=== PATIENT | male | born 2000 | race Caucasian/White ===

== ENCOUNTER 2019-06-18 19:45 | Inpatient (IN) ==
[2019-06-18 20:25] LABS: Basophils # 0.1 K/mcL (0.0-0.2); Basophils % 0.6 %; Eosinophils # 0.2 K/mcL (0.0-0.6); Eosinophils % 1.8 %; Hematocrit 45.8 % (37.5-50.1); Immature Granulocytes % 0.2 % (0-4); Lymphocytes # 2.3 K/mcL (0.6-4.6); Mean Corpuscular HGB Conc 34.9 g/dL (31.6-35.5); Mean Corpuscular Hemoglobin 30.5 pg (28.0-33.3); Mean Corpuscular Volume 87.4 fL (83.0-100.0); Monocytes # 0.7 K/mcL (0.0-1.3); Monocytes % 6.9 %; Neutrophils # 6.3 K/mcL (1.6-8.9); Platelet Count 285 K/mcL (140-400); Red Blood Count 5.24 M/mcL (4.19-5.50); Red Cell Distribution Width 13.2 % (11.5-14.5); Segmented Neutrophils % 66.5 %; White Blood Count 9.5 K/mcL (4.3-11.1)
[2019-06-18 20:27] LABS: Bilirubin,Urine Negative (Negative); Blood,Urine Negative (Negative); Clarity,Urine Cloudy (Clear); Color,Urine Yellow (Yellow); Glucose,Urine (UA) Normal (Normal); Ketones,Urine Negative (Negative); Leukocyte Esterase,Urine Negative (Negative); Nitrite,Urine Negative (Negative); PH,Urine 6.5 pH Units (5.0-8.0); Protein,Urine Negative (Neg-Trace); Specific Gravity,Urine 1.023 (1.010-1.025); Urobilinogen,Urine Normal (Normal)
[2019-06-18 20:29] LABS: Bacteria,Urine None Seen per hpf (None-Few); Hyaline Casts,Urine None Seen per lpf (None-Few); RBC,Urine 0-3 per hpf (0-3); Squamous Epithelial Cell,Urine Moderate per lpf (None-Few); WBC,Urine 0-3 per hpf (0-3)
[2019-06-18 20:35] LABS: Amphetamine Screen,Urine Positive ng/mL (Cutoff=1000); Barbiturate Screen,Urine Negative ng/mL (Cutoff=200); Benzodiazepines Screen,Urine Negative ng/mL (Cutoff=200); Cannabinoid Screen,Urine Positive ng/mL (Cutoff = 50); Cocaine Screen,Urine Negative ng/mL (Cutoff= 300); Opiate Screen,Urine Negative ng/mL (Cutoff=300); Phencyclidine Screen,Urine Negative ng/mL (Cutoff=25)
[2019-06-18 20:49] LABS: Acetaminophen < 10 mcg/mL (10-20); BUN/Creatinine Ratio 12 (6-26); Blood Urea Nitrogen 11 mg/dL (6-20); Calcium 9.4 mg/dL (8.6-10.3); Carbon Dioxide 26 mEq/L (23-29); Chloride 104 mEq/L (98-107); Ethanol < 10 mg/dL (Less than 10); Glucose 110 mg/dL (70-105); Osmolality,Calculated 288 (280-300); Potassium 3.4 mEq/L (3.5-5.1); Salicylate < 2.5 mg/dL (15.0-30.0); Sodium 139 mEq/L (136-145); eGFR For African Americans > 60 (> 60); eGFR For Non-African Americans > 60 (> 60)
[2019-06-18] MEDS ORDERED: traZODone 50 MG TABLET PO PRN (23:49)
[2019-06-18] MEDS ORDERED: *HR* LORazepam 1 MG TABLET PO PRN (23:49)
[2019-06-18] MEDS ORDERED: *HR* LORazepam 2 MG/ML VIAL IM PRN (23:49)
[2019-06-18] MEDS ORDERED: Nicotine 2 MG GUM BC PRN (23:49)
[2019-06-18] MEDS ORDERED: Acetaminophen 325 MG TABLET PO PRN (23:49)
[2019-06-18] MEDS ORDERED: Haloperidol Lactate 5 MG/ML VIAL IM PRN (23:49)
[2019-06-18] MEDS ORDERED: hydrOXYzine pamoate 25 MG CAPSULE PO PRN (23:49)
[2019-06-18] MEDS ORDERED: MOM Conc 10 ML UD.LIQ PO PRN (23:49)
[2019-06-18] MEDS ORDERED: Mag Hydrox/Al Hydrox/Simeth 30 ML UDC PO PRN (23:49)
[2019-06-24 09:23] VITALS: BP 115/78
== END 2019-06-24 10:55 | disposition home or self-care (01) | DRG 751 ==
LOC: EMEROOARM 19:45 → SUATTDRO 23:25 → 1ANU 23:25
PROVIDERS: ADMIT Psychiatry & Neurology Psychiatry; ATTEND Psychiatry & Neurology Psychiatry

== ENCOUNTER 2020-03-28 16:16 | Observation (INO) ==
[2020-03-28 17:04] LABS: Basophils # 0.1 K/mcL (0.0-0.2); Basophils % 0.4 %; Eosinophils # 0.1 K/mcL (0.0-0.6); Eosinophils % 0.8 %; Hematocrit 47.7 % (37.5-50.1); Hemoglobin 15.7 g/dL (12.9-16.9); Immature Granulocytes % 0.4 % (0-4); Lymphocytes # 1.6 K/mcL (0.6-4.6); Lymphocytes % 9.7 %; Mean Corpuscular HGB Conc 32.9 g/dL (31.6-35.5); Mean Corpuscular Hemoglobin 29.8 pg (28.0-33.3); Mean Corpuscular Volume 90.7 fL (83.0-100.0); Mean Platelet Volume 9.5 fL (9.4-12.4); Monocytes # 1.8 K/mcL (0.0-1.3); Monocytes % 10.8 %; Neutrophils # 12.8 K/mcL (1.6-8.9); Platelet Count 282 K/mcL (140-400); Red Blood Count 5.26 M/mcL (4.19-5.50); Red Cell Distribution Width 13.2 % (11.5-14.5); Segmented Neutrophils % 77.9 %; White Blood Count 16.5 K/mcL (4.3-11.1)
[2020-03-28 17:08] LABS: INR 1.1; Prothrombin Time 12.9 Seconds (9.4-12.1)
[2020-03-28 17:08] LABS: Bilirubin,Urine Negative (Negative); Blood,Urine Negative (Negative); Clarity,Urine Clear (Clear); Color,Urine Yellow (Yellow); Glucose,Urine (UA) Normal (Normal); Ketones,Urine Negative (Negative); Leukocyte Esterase,Urine Negative (Negative); Nitrite,Urine Negative (Negative); Protein,Urine Trace mg/dL (Neg-Trace); Specific Gravity,Urine > 1.030 (1.010-1.025)
[2020-03-28 17:11] LABS: Activated Partial Thrombo Time 29.6 Seconds (26.0-36.0)
[2020-03-28] MEDS ORDERED: Isovue-370 500 ML BOTTLE IVP ONE (17:15)
[2020-03-28] MEDS ORDERED: 0.9 % Sodium Chloride 1,000 ML IVC ONE (17:16)
[2020-03-28 17:22] LABS: Alanine Aminotransferase 231 Units/L (7-52); Albumin 4.9 g/dL (3.5-5.7); Albumin/Globulin Ratio 1.4 (1.1-2.2); Alkaline Phosphatase 99 Units/L (34-104); Aspartate Amino Transferase 114 Units/L (13-39); BUN/Creatinine Ratio 12 (6-26); Bilirubin,Direct 0.2 mg/dL (0.0-0.2); Bilirubin,Indirect 0.8 mg/dL (0.0-1.0); Blood Urea Nitrogen 11 mg/dL (6-20); Calcium 9.9 mg/dL (8.6-10.3); Carbon Dioxide 30 mEq/L (23-29); Chloride 100 mEq/L (98-107); Globulin 3.4 g/dL (2.4-3.5); Glucose 80 mg/dL (70-105); Lipase 7 Units/L (11-82); Osmolality,Calculated 280 (280-300); Potassium 3.3 mEq/L (3.5-5.1); Sodium 136 mEq/L (136-145); Total Protein 8.3 g/dL (6.4-8.9); eGFR For African Americans > 60 (> 60); eGFR For Non-African Americans > 60 (> 60)
[2020-03-28] MEDS ORDERED: Morphine Sulfate 2 MG/ML SYRINGE IVP ONE (17:25)
[2020-03-28] MEDS ORDERED: Ondansetron 4 MG/2 ML VIAL IVP ONE (17:26)
[2020-03-28] MEDS ORDERED: Piperacillin/Tazobactam 3.375 GM in Water for inj. (sterile) 20 ML IVP ONE (18:43)
[2020-03-28 19:48] LABS: Amphetamine Screen,Urine Positive ng/mL (Cutoff=1000); Barbiturate Screen,Urine Negative ng/mL (Cutoff=200); Benzodiazepines Screen,Urine Negative ng/mL (Cutoff=200); Cannabinoid Screen,Urine Positive ng/mL (Cutoff = 50); Cocaine Screen,Urine Negative ng/mL (Cutoff= 300); Opiate Screen,Urine Negative ng/mL (Cutoff=300); Phencyclidine Screen,Urine Negative ng/mL (Cutoff=25)
[2020-03-28] MEDS ORDERED: Naloxone 0.4 MG/ML INJ IVP PRN ×2 (20:00→23:10)
[2020-03-28] MEDS ORDERED: Ondansetron 4 MG/2 ML VIAL IVP PRN ×2 (20:00→23:10)
[2020-03-28] MEDS ORDERED: 0.9 % Sodium Chloride 1,000 ML IVC SCH (20:00)
[2020-03-28] MEDS ORDERED: Ondansetron 4 MG/2 ML VIAL ONE (20:02)
[2020-03-28] MEDS ORDERED: Dexamethasone 4 MG/ML VIAL ONE (20:02)
[2020-03-28] MEDS ORDERED: *HR* Succinylcholine 200 MG/10 ML VIAL IVP ONE (20:02)
[2020-03-28] MEDS ORDERED: Lidocaine -MPF 2% 2 ML VIAL ONE (20:02)
[2020-03-28] MEDS ORDERED: Neostigmine Methylsulfate 3 MG/3 ML SYRINGE ONE (20:02)
[2020-03-28] MEDS ORDERED: *HR* FentaNYL (PF) 100 MCG/2 ML VIAL ONE (20:03)
[2020-03-28] MEDS ORDERED: *HR* HYDROMORPHONE 2 MG/ML VIAL ONE (20:03)
[2020-03-28] MEDS ORDERED: *HR* Propofol 200 MG/20 ML VIAL IVP ONE ×2 (20:03)
[2020-03-28] MEDS ORDERED: *HR* Midazolam HCl 2 MG/2 ML VIAL ONE (20:03)
[2020-03-28] MEDS ORDERED: *HR* FentaNYL (PF) 100 MCG/2 ML VIAL IVP PRN ×2 (20:43→23:10)
[2020-03-28] MEDS ORDERED: *HR* HYDROmorphone PF 0.5 MG/0.5 ML SYRINGE IVP PRN ×2 (20:44→23:10)
[2020-03-28] MEDS ORDERED: *HR* Metoprolol 5 MG/5 ML VIAL IVP PRN ×2 (20:44→23:10)
[2020-03-28] MEDS ORDERED: *HR* OxyCODONE/APAP 5/325 TABLET PO PRN ×2 (22:29→23:10)
[2020-03-28] MEDS: 0.9 % Sodium Chloride 1,000 ML IVC SCH (23:37)
[2020-03-28] MEDS: Piperacillin/Tazobactam 3.375 GM in 0.9 % Sodium Chloride Mini Bag 100 ML IVPB SCH (23:37)
[2020-03-29] MEDS ORDERED: Piperacillin/Tazobactam 3.375 GM in 0.9 % Sodium Chloride Mini Bag 100 ML IVPB SCH
[2020-03-29 04:06] LABS: Basophils % 0.2 %; Eosinophils % 0.2 %; Hematocrit 40.4 % (37.5-50.1); Immature Granulocytes % 0.4 % (0-4); Lymphocytes # 1.1 K/mcL (0.6-4.6); Lymphocytes % 9.1 %; Mean Corpuscular HGB Conc 32.7 g/dL (31.6-35.5); Mean Corpuscular Hemoglobin 29.9 pg (28.0-33.3); Mean Corpuscular Volume 91.6 fL (83.0-100.0); Mean Platelet Volume 9.9 fL (9.4-12.4); Monocytes # 0.3 K/mcL (0.0-1.3); Monocytes % 2.1 %; Neutrophils # 10.9 K/mcL (1.6-8.9); Platelet Count 197 K/mcL (140-400); Red Blood Count 4.41 M/mcL (4.19-5.50); Red Cell Distribution Width 13.2 % (11.5-14.5); White Blood Count 12.4 K/mcL (4.3-11.1)
[2020-03-29 04:09] LABS: INR 1.2; Prothrombin Time 13.9 Seconds (9.4-12.1)
[2020-03-29 04:18] LABS: Hemoglobin 13.2 g/dL (12.9-16.9)
[2020-03-29 04:27] LABS: Alanine Aminotransferase 155 Units/L (7-52); Albumin 3.6 g/dL (3.5-5.7); Albumin/Globulin Ratio 1.4 (1.1-2.2); Alkaline Phosphatase 69 Units/L (34-104); Aspartate Amino Transferase 69 Units/L (13-39); BUN/Creatinine Ratio 9 (6-26); Bilirubin,Total 1.1 mg/dL (0.3-1.0); Blood Urea Nitrogen 8 mg/dL (6-20); Calcium 8.6 mg/dL (8.6-10.3); Carbon Dioxide 23 mEq/L (23-29); Chloride 108 mEq/L (98-107); Chol/HDL Ratio 2.9 (0-4.9); Cholesterol 94 mg/dL (< 200); Globulin 2.6 g/dL (2.4-3.5); Glucose 137 mg/dL (70-105); HDL Cholesterol 32 mg/dL (40-59); LDL Cholesterol,Calculated 51 mg/dL (< 100); Magnesium 1.7 mg/dL (1.6-2.6); Osmolality,Calculated 284 (280-300); Phosphorous 2.9 mg/dL (2.7-4.5); Potassium 4.4 mEq/L (3.5-5.1); Sodium 137 mEq/L (136-145); Total Protein 6.2 g/dL (6.4-8.9); Triglycerides 56 mg/dL (< 150); eGFR For African Americans > 60 (> 60); eGFR For Non-African Americans > 60 (> 60)
[2020-03-29 04:47] LABS: Hepatitis B Surface Antigen Nonreactive (Nonreactive)
[2020-03-29 05:17] LABS: Hepatitis A Antibody IgM Nonreactive (Nonreactive); Hepatitis B Core IgM Nonreactive (Nonreactive)
[2020-03-29] MEDS: 0.9 % Sodium Chloride 1,000 ML IVC SCH (06:44)
[2020-03-29 07:46] LABS: Hepatitis C Virus Antibody Reactive (Nonreactive)
[2020-03-29] MEDS: Piperacillin/Tazobactam 3.375 GM in 0.9 % Sodium Chloride Mini Bag 100 ML IVPB SCH ×3 (09:00→23:42)
[2020-03-30 02:17] LABS: Hematocrit 40.7 % (37.5-50.1); Hemoglobin 13.2 g/dL (12.9-16.9); Mean Corpuscular HGB Conc 32.4 g/dL (31.6-35.5); Mean Corpuscular Volume 92.5 fL (83.0-100.0); Mean Platelet Volume 9.5 fL (9.4-12.4); Platelet Count 202 K/mcL (140-400); Red Cell Distribution Width 13.3 % (11.5-14.5); White Blood Count 8.9 K/mcL (4.3-11.1)
[2020-03-30 02:32] LABS: Alanine Aminotransferase 123 Units/L (7-52); Albumin 3.3 g/dL (3.5-5.7); Albumin/Globulin Ratio 1.3 (1.1-2.2); Alkaline Phosphatase 60 Units/L (34-104); Aspartate Amino Transferase 57 Units/L (13-39); BUN/Creatinine Ratio 13 (6-26); Bilirubin,Total 0.4 mg/dL (0.3-1.0); Blood Urea Nitrogen 12 mg/dL (6-20); Calcium 8.2 mg/dL (8.6-10.3); Carbon Dioxide 26 mEq/L (23-29); Chloride 107 mEq/L (98-107); Globulin 2.5 g/dL (2.4-3.5); Glucose 109 mg/dL (70-105); Osmolality,Calculated 290 (280-300); Potassium 3.5 mEq/L (3.5-5.1); Sodium 140 mEq/L (136-145); Total Protein 5.8 g/dL (6.4-8.9); eGFR For African Americans > 60 (> 60); eGFR For Non-African Americans > 60 (> 60)
[2020-03-30 06:56] VITALS: BP 111/70
[2020-03-30] MEDS: Piperacillin/Tazobactam 3.375 GM in 0.9 % Sodium Chloride Mini Bag 100 ML IVPB SCH (08:26)
[2020-04-03 11:24] LABS: HCV Quant Log 7.01 log IU/mL
[2020-04-03 16:27] LABS: HCV Quant Interpretation DETECTED (Not Detected)
== END 2020-03-30 12:19 | disposition home or self-care (01) ==
LOC: 3BNU 16:16 → EMEROOARM 16:16 → SUATTDRO 19:15 → 3BNU 19:35
PROVIDERS: ADMIT Student in an Organized Health Care Education/Training Program; ATTEND Nurse Practitioner Adult Health